=== PATIENT | female | born 1975 | race Caucasian/White ===

== ENCOUNTER 2018-04-15 10:29 | Emergency (ER) | payer BC ==
--- NOTE | 2018-04-15 10:53 | EDPHY ---
General Time Seen by Provider: 04/15/18 10:43 Narrative: CHIEF COMPLAINT: Abdominal pain HISTORY OF PRESENT ILLNESS: Patient presents prior vehicle with complaints of left-sided abdominal pain that started 3 hr ago. Abrupt. Constant duration. Moderate to severe. Worse palpation movement, bending over. Associated with nausea but no vomiting. No fever chills but no trauma injury. No constipation diarrhea. No urinary complaints. No position of comfort however. Previous abdominal diagnoses include irritable bowel. She does take Humira for psoriatic arthritis, and she did inject herself in that location on Monday. No other associated complaints or modifying factors. REVIEW OF SYSTEMS: 10 systems were reviewed and negative with the exception of the elements mentioned in the history of present illness. PCP: Bharathi physician SPECIALISTS: Dr. Ramírez, Rheumatology PAST MEDICAL HISTORY: Psoriatic arthritis, irritable bowel, PAST SURGICAL HISTORY: No recent surgical history. No abdominal surgical history SOCIAL HISTORY: Smoker. Denies alcohol use. Occasional CBD oral use. Does not work FAMILY HISTORY: Noncontributory EXAMINATION: Vitals: Triage VS reviewed General Appearance: Alert, no distress Head: normocephalic, atraumatic Eyes: Pupils equal and round, no conjunctival pallor or injection ENT, Mouth: Mucous membranes moist Neck: Normal inspection, supple, non-tender Respiratory: Lungs are clear to auscultation Cardiovascular: Regular rate and rhythm Gastrointestinal: Abdomen is soft and nondistended. There is tenderness in left side of the abdomen without guarding or tympany. No CVA tenderness. Back: non-tender, no bony abnormalities Neurological: A&O, nonfocal, normal gait Skin: Warm and dry, no rash Extremities: Nontender, no pedal edema Psychiatric: Mood and affect normal DIFFERENTIAL DIAGNOSES: Including but not limited to seroma, hematoma, rectus sheath hematoma, colitis, diverticulitis, pancreatitis, mesenteric adenitis, ureteral colic, renal colic, pyelonephritis MDM: 10:45 a.m. Left upper quadrant abdominal pain 3 hr duration. Her abdominal exam is benign and non worrisome. No peritonitis. Bowel sounds are present. Her vitals are within normal limits. She does not meet SIRS criteria. She is well-appearing, nontoxic in no acute distress. Her pain is in the vicinity of a recent Humira injection 3 days ago. I have ordered laboratory studies, fluid and pain medication as she does appear to be in discomfort. I do not feel she warrants imaging at this time but I will re-evaluate shortly. 12:20 p.m. Laboratory studies reveal mild leukocytosis with normal renal function. There is also microscopic hematuria with pyuria and positive leukocyte esterase. I re -evaluated the patient this time. She states that her pain has worsened. She does appear to be more tender on the left side of the abdomen. She has no flank tenderness. 1:[address] Notified by radiologist. CT scan abdomen is reveals a stone in the left ureter , near the UVJ approximately 4 x 2 mm. Mild hydronephrosis. No other acute findings. Patient re-evaluated. She continues to have pain but is reassured but CT findings. We discussed further pain medication, Toradol Flomax as the stone is near the UVJ. She is agreeable to this. She has no acute distress. Vital signs stable. 2:15 p.m. Patient re-evaluated. She is feeling significantly better. She is now sitting up in bed. No nausea. No vomiting. Pain is nearly at 0. I discussed admission to the hospital for pain control versus discharge home with symptomatic care and follow up with Urology. She has elected to go home. I do feel it is reasonable to discharge home at this time. No signs of acute infection. No pyelonephritis by history, exam or CT scan. We discussed discharge home with urine strainer, symptomatic medications and follow up with Urology. We discussed strict ED precautions for fever, flank pain, difficulty urinating, abdominal pain. She is comfortable this plan. Her spouse will drive her home, she is discharged home stable condition. SUPERVISION: Patient was independently examined, but I discussed the case with my primary supervising physician Dr. Maynard. CONSULTATION: None - Diagnostics Imaging Results: Imaging Impressions Abdomen CT 04/15/18 12:24 Impression: 1. Mild to moderate left hydronephrosis and hydroureter due to a 4 x 2 mm distal left ureteral calculus at the ureterovesical junction. 2. Normal appendix and bowel pattern. Findings discussed with emergency department physician periodontal assistant, Bobo Prater PA-C on April 15, 2018 at 1:16 p.m. Imaging: Discussed imaging studies w/ weight caller Radiologist, I viewed and interpreted images myself - History History Review: I reviewed the patient's medical records Smoking Status: Current every day smoker - Objective Vital Signs: Initial Vital Signs Temperature (C) 97.7 F 04/15/18 10:35 Heart Rate 80 04/15/18 10:35 Respiratory Rate 16 04/15/18 10:35 Blood Pressure 124/89 H 04/15/18 10:35 O2 Sat (%) 99 04/15/18 10:35 O2 Delivery Mode Room Air Allergies/Adverse Reactions: Sulfa (Sulfonamide Antibiotics) Allergy (Mild, Verified 04/15/18 10:37) ?palpitations Home Medications: Medication Instructions Recorded Adalimumab [Humira] 10 mg SQ 04/15/18 Amphet Asp and D/Amphet [Adderall 10 mg PO 04/15/18 10 MG (*)] Gabapentin [Neurontin 300 MG (*)] 300 mg PO HS 04/15/18 Ketorolac Tromethamine [Toradol 1 tab PO Q8 PRN #3 tab 04/15/18 10mg tab] Nuvaring 04/15/18 Ondansetron Odt [Zofran Odt 4 mg 4 mg PO Q6 PRN #12 tab 04/15/18 (*)] oxyCODONE HCL/ACETAMINOPHEN 1 each PO Q4-6PRN PRN #7 tablet 04/15/18 [Percocet 5-325 mg Tablet] traMADol [Ultram 50 mg (*)] 50 mg PO Q4 04/15/18 Laboratory Results: Laboratory Results 04/15/18 11:00 04/15/18 11:00 04/15/18 04/15/18 04/15/18 11:10 11:00 11:00 WBC RBC Hgb Hct MCV MCH MCHC RDW Plt Count MPV Neut % (Auto) Lymph % (Auto) [place] % (Auto) Eos % (Auto) Baso % (Auto) Nucleat RBC Rel Count Absolute Neuts (auto) Absolute Lymphs (auto) Absolute Monos (auto) Absolute Eos (auto) Absolute Basos (auto) Absolute Nucleated RBC Immature Gran % Immature Gran # Sodium 136 mEq/L mEq/L (135-145) Potassium 3.7 mEq/L mEq/L (3.3-5.0) Chloride 104 mEq/L mEq/L (97-110) Carbon Dioxide 21 mEq/l L mEq/l (22-31) Anion Gap 11 mEq/L mEq/L (6-14) BUN 15 mg/dL mg/dL (7-23) Creatinine 0.7 mg/dL mg/dL (0.6-1.0) Estimated GFR > 60 Glucose 104 mg/dL H mg/dL (70-100) Calcium 9.7 mg/dL mg/dL (8.5-10.4) Total Bilirubin 0.3 mg/dL mg/dL (0.1-1.4) Conjugated Bilirubin 0.2 mg/dL mg/dL (0.0-0.5) Unconjugated Bilirubin 0.1 mg/dL mg/dL (0.0-1.1) AST 18 IU/L IU/L (14-46) ALT 22 IU/L IU/L (9-52) Alkaline Phosphatase 73 IU/L IU/L (38-126) Total Protein 6.9 g/dL g/dL (6.3-8.2) Albumin 3.9 g/dL g/dL (3.5-5.0) Lipase 22 IU/L L IU/L (23-300) Beta HCG, Qual NEGATIVE Urine Color YELLOW Urine Appearance HAZY Urine pH 5.0 (5.0-7.5) Ur Specific [place] 1.029 (1.002-1.030) Urine Protein 1+ H (NEGATIVE) Urine Ketones TRACE H (NEGATIVE) Urine Blood 2+ H (NEGATIVE) Urine Nitrate NEGATIVE (NEGATIVE) Urine Bilirubin NEGATIVE (NEGATIVE) Urine Urobilinogen NEGATIVE EU EU (0.2-1.0) Ur Leukocyte Esterase TRACE H (NEGATIVE) Urine RBC 50-182 /hpf H /hpf (0-3) Urine WBC 5-10 /hpf H /hpf (0-3) Ur Epithelial Cells TRACE /lpf /lpf (NONE-1+) Urine Bacteria TRACE /hpf H /hpf (NONE SEEN) Urine Mucus 1+ /lpf /lpf (NONE-1+) Urine Glucose NEGATIVE (NEGATIVE) 04/15/18 11:00 WBC 12.59 10^3/uL H 10^3/uL (3.80-9.50) RBC 4.48 10^6/uL 10^6/uL (4.18-5.33) Hgb 13.1 g/dL g/dL (12.6-16.3) Hct 38.2 % % (38.0-47.0) MCV 85.3 fL fL (81.5-99.8) MCH 29.2 pg pg (27.9-34.1) MCHC 34.3 g/dL g/dL (32.4-36.7) RDW 14.1 % % (11.5-15.2) Plt Count 401 10^3/uL H 10^3/uL (150-400) MPV 8.6 fL L fL (8.7-11.7) Neut % (Auto) 79.6 % H % (39.3-74.2) Lymph % (Auto) 13.0 % L % (15.0-45.0) [place] % (Auto) 6.3 % % (4.5-13.0) Eos % (Auto) 0.3 % L % (0.6-7.6) Baso % (Auto) 0.3 % % (0.3-1.7) Nucleat RBC Rel Count 0.0 % % (0.0-0.2) Absolute Neuts (auto) 10.02 10^3/uL H 10^3/uL (1.70-6.50) Absolute Lymphs (auto) 1.64 10^3/uL 10^3/uL (1.00-3.00) Absolute Monos (auto) 0.79 10^3/uL 10^3/uL (0.30-0.80) Absolute Eos (auto) 0.04 10^3/uL 10^3/uL (0.03-0.40) Absolute Basos (auto) 0.04 10^3/uL 10^3/uL (0.02-0.10) Absolute Nucleated RBC 0.00 10^3/uL 10^3/uL (0-0.01) Immature Gran % 0.5 % % (0.0-1.1) Immature Gran # 0.06 10^3/uL 10^3/uL (0.00-0.10) Sodium Potassium Chloride Carbon Dioxide Anion Gap BUN Creatinine Estimated GFR Glucose Calcium Total Bilirubin Conjugated Bilirubin Unconjugated Bilirubin AST ALT Alkaline Phosphatase Total Protein Albumin Lipase Beta HCG, Qual Urine Color Urine Appearance Urine pH Ur Specific [place] Urine Protein Urine Ketones Urine Blood Urine Nitrate Urine Bilirubin Urine Urobilinogen Ur Leukocyte Esterase Urine RBC Urine WBC Ur Epithelial Cells Urine Bacteria Urine Mucus Urine Glucose Medications Given: Discontinued Medications Hydromorphone HCl (Dilaudid) 1 mg IVP EDNOW ONE Stop: 04/15/18 13:23 Last Admin: 04/15/18 13:28 Dose: 1 mg Sodium Chloride (Ns) 1,000 mls @ 0 mls/hr IV EDNOW ONE; Wide Open PRN Reason: Protocol Stop: 04/15/18 10:55 Last Admin: 04/15/18 11:56 Dose: 1,000 mls Ketorolac Tromethamine (Toradol) 30 mg IVP EDNOW ONE Stop: 04/15/18 13:23 Last Admin: 04/15/18 13:28 Dose: 30 mg Morphine Sulfate (Morphine) 4 mg IVP EDNOW ONE Stop: 04/15/18 10:55 Last Admin: 04/15/18 11:57 Dose: 4 mg Morphine Sulfate (Morphine) 4 mg IVP EDNOW ONE Stop: 04/15/18 12:26 Last Admin: 04/15/18 12:52 Dose: 4 mg Ondansetron HCl (Zofran) 4 mg IVP EDNOW ONE Stop: 04/15/18 10:55 Last Admin: 04/15/18 11:57 Dose: 4 mg Tamsulosin HCl (Flomax) 0.4 mg PO EDNOW ONE Stop: 04/15/18 13:23 Last Admin: 04/15/18 13:28 Dose: 0.4 mg Departure - Departure Disposition: Home, Routine, Self-Care Clinical Impression: Ureteral stone with hydronephrosis, Acute abdominal pain Condition: Good Instructions: Renal Colic (ED), Ureteral Stones (ED) Additional Instructions: 1. Medications as prescribed as needed. 2. Increase fluid intake for the next few days. 3. Strain your urine for the next 48-72 hours 4. Contact the primary care physician that you have requested to establish care 5. Contact the on-call urologist as provided for outpatient definitive care 6. Strict ED precautions for return of pain, fever, flank pain, nausea vomiting , difficulty urinating Referrals: Mohan Guevara MD [Medical Doctor] - As per Instructions Mauricio Marquez MD [place] [place] - As per Instructions Prescriptions: Ketorolac Tromethamine [Toradol 10mg tab] 1 tab PO Q8 PRN #3 tab PRN Reason: Pain, Breakthrough Ondansetron Odt [Zofran Odt 4 mg (*)] 4 mg PO Q6 PRN #12 tab PRN Reason: Nausea/Vomiting, Use 1st oxyCODONE HCL/ACETAMINOPHEN [Percocet 5-325 mg Tablet] 1 each PO Q4-6PRN PRN #7 tablet PRN Reason: Pain, Breakthrough
[2018-04-15] MEDS ORDERED: ONDANSETRON 4 MG/2 ML VIAL IVP ONE (10:54)
[2018-04-15] MEDS ORDERED: NS 1,000 ML IV ONE (10:54)
[2018-04-15 11:43] LABS: PLATELET COUNT 401 10^3/uL (150-400)
[2018-04-15] MEDS ORDERED: IOPAMIDOL (ISOVUE-300) 100 ML BTL ONE (12:47)
[2018-04-15] MEDS ORDERED: KETOROLAC 30 MG/1 ML SDV IVP ONE (13:22)
[2018-04-15] MEDS ORDERED: TAMSULOSIN HCL 0.4 MG CAP PO ONE (13:22)
[2018-04-15] MEDS ORDERED: HYDROmorphONE/DILAUDID 1 MG/ML INJ IVP ONE (13:22)
[2018-04-15 14:54] VITALS: BP 119/83
== END 2018-04-15 15:08 | disposition home or self-care (01) ==
DX: N13.1 Hydronephrosis with ureteral stricture, not elsewhere classified (principal); E86.9 Volume depletion, unspecified; F17.200 Nicotine dependence, unspecified, uncomplicated
CPT/HCPCS: 96374; J1170; J1885; J2270; J2405; Q9967